=== PATIENT | female | born 2005 ===

== ENCOUNTER 2023-04-25 08:56 | Outpatient (AMB) | payer OTHER, SELFPAY ==
--- NOTE | 2023-04-25 09:35 | AM.OFFWIN_ITS ---
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 ([phone]) Intake Note: pt is here today for sore throat started 2 weeks ago Allergies No Known Allergies Allergy (Verified 04/25/23 09:36) Do you need a note to return to daycare/school/sports/work: Yes HPI HPI Comments History of Present Illness Details She presents with ST 2 weeks ago + tonsillar swelling with fe jade but was given amoxicillin and it resolved She stopped antibiotics early; took about 4-5 days worth She said tonsils were still swollen but white spots were gone Symptoms started again a few day ago She said no fever or chills Pain level very bad Hard to swollow Review of Systems Const Denies body aches, Denies chills, Denies fatigue and Denies fever(s) Eyes Denies blurry vision ENT Denies otalgia, Denies nasal discharge, Denies sinus pressure, Reports sore throat, Reports throat swelling (tonsils) and Denies tongue swelling Card Denies chest pain and Denies dyspnea Resp Denies cough and Denies dyspnea Endo Denies fatigue Aller/Immun Reports throat swelling (tonsils) and Denies tongue swelling Physical Exam Vital Signs: General: Non-toxic, NAD. Speaking full sentences. Skin: Warm dry throughout Eye: EOMI HENT: Airway patent. Uvula midline. + pharyngeal erythema with tonsillar exudates and edema. Tonsils not touching. No tongue edema. No CRYSTALIZER OPERATOR. Bilateral canals clear. TM non-erythematous, non-bulging. No TM perforation or hemotympanum noted. Lymph: + lymphadenopathy Respiratory: No respiratoyr distress or tachypnea Cardiac: RRR. No murmur MSK: Full ROM extremities. Neurology: A/O. No aphasia or facial droop. Gait without abnormality Psych: Good mood and affect Assessment & Plan Assessment & Plan (1) Strep pharyngitis: Code(s): J02.0 - Streptococcal pharyngitis Plan: Patient seen and evaluated. Airway is patent and there is no CRYSTALIZER OPERATOR Strep appeared negative but based off of [facility] criteria + strep She does not have mono like symptoms of fatigue/malaise/body aches Amoxicillin for FULL DOSE. We discussed importance of this. Prednisone with food;avoid nsaids and alcohol ANy inability to swallow, tightness, worsening symptoms go to Ed Patient gave verbal understanding and had no additional questions or concerns at time of discharge All questions answered Medications: New amoxicillin 500 mg PO Q12H 20 tabs 0RF J02.0 - Streptococcal pharyngitis prednisone 40 mg (2 x 20 mg) PO DAILY 4 days 8 tabs 0RF J02.0 - Streptococcal pharyngitis Coding Level of Care Code New Pt Level 3 (93851) Diagnoses Strep pharyngitis J02.0
[2023-04-25 09:45] VITALS: BP 118/80; PULSE 98; O2SAT 98; BMI 33.8
== END 2023-04-25 10:03 | disposition home or self-care (01) ==
PROVIDERS: Visit Provider Physician Assistant
DX: Z13.9 Encounter for screening, unspecified (principal); J02.0 Streptococcal pharyngitis
CPT/HCPCS: 87880; 99203

== ENCOUNTER 2023-05-16 08:38 | Outpatient (AMB) | payer OTHER, SELFPAY ==
--- NOTE | 2023-05-16 08:41 | AM.OFFWIN_ITS ---
Intake Vital Signs 05/16/23 08:45 Height 5 ft 3 in Weight 194 lb BMI 34.4 BP 116/78 Blood Pressure Location Lt brachial Position Sitting Pulse 87 Pulse Source Pulse Oximeter Temp 97.6 F Temp Source Temporal Artery Scan Pulse Oximetry (%) 99 Oxygen Delivery Method Room Air Intake Visit Reasons: EP swollen tonsils [id number] Intake Note: pt is here today for swollen tonsils started 1 week ago Patient Tobacco Use Status: Never used Tobacco Is last menstrual period known: Yes Allergies No Known Allergies Allergy (Verified 04/25/23 09:36) Do you need a note to return to daycare/school/sports/work: No HPI HPI Comments History of Present Illness Details This is a 17-year-old female who presented to the walk-in clinic complaining of tonsillar swelling. Patient states she was treated for strep pharyngitis at the beginning of March; however, she did not complete the antibiotic course of amoxicillin. She was then evaluated here on 04/25/2023 for persistent symptoms. Her rapid strep testing was negative; however, the patient was diagnosed with strep pharyngitis based on [facility] criteria and she was given a 10 day course of amoxicillin as well as a 4 day course of prednisone. Patient states she completed both of these medications and her symptoms resolved but then returned again approximately 1 week ago. She reports sore throat, dysphagia, and tonsillar swelling. She denies any difficulty breathing or difficulty swallowing. She denies any cough. Patient is also requesting a test. She states she has been spotting and cramping. She took a test at home, which was positive; however, she then took 5 more test, which were negative. [facility] Social History Patient Tobacco Use Status: Never used Tobacco Review of Systems Const All systems reviewed & are unremarkable except as noted in HPI and below Reports no additional complaints Eyes Reports no additional complaints ENT Reports no additional complaints Card Reports no additional complaints Resp Reports no additional complaints GI Reports no additional complaints Reports no additional complaints Musc Reports no additional complaints Skin/Breast Reports system reviewed and no additional complaints, except as documented Neuro Reports no additional complaints Psych Reports no additional complaints Endo Reports no additional complaints Jono/Lymph Reports no additional complaints Aller/Immun Reports no additional complaints Physical Exam Vital Signs: Last Vital Signs Temp 97.6 F 05/16/23 08:45 Pulse 87 01/19/24 08:45 BP 116/78 05/16/23 08:45 Pulse Ox 99 05/16/23 08:45 Oxygen Delivery Method Room Air 05/16/23 08:45 BMI result Body Mass Index 34.4 Const Other: Vital signs reviewed. Constitutional: Non-toxic appearing. No acute distress. Well-developed and well-nourished. HEENT: Normocephalic and atraumatic. Bilateral tonsillar swelling and erythema. There are scant white patchy exudates. Airway patent. Skin: Warm and dry. No rashes or lesions noted. Neck: Full and painless range of motion. No cervical lymphadenopathy. Cardio: Regular rate No lower extremity edema. No JVD. Pulmonary: No respiratory distress. No accessory muscle usage. No stridor. Musculoskeletal: Normal range of motion in joints throughout the body. No deformity or other signs of injury. Neuro: Alert and oriented x4. Cranial nerves 2-12 grossly intact. No focal deficits appreciated. Psych: Normal mood and affect. Results AMB Rapid Strep AMB Rapid Strep Negative Last Edit by Sher Alvarez CMA on 05/16/23 09 :08 AMB Test Urine AMB Test Urine Negative Last Edit by Sher Alvarez CMA on 05/16/23 09:19 Results Reviewed Results Reviewed: Laboratory Last Values Strep Scn Rapid Clinic Negative 05/16/23 09:08 Assessment & Plan Assessment & Plan (1) Strep pharyngitis: Code(s): J02.0 - Streptococcal pharyngitis (2) Acute tonsillitis: Code(s): J03.90 - Acute tonsillitis, unspecified Qualifiers: Pharyngitis/tonsillitis etiology: streptococcus Streptococcal tonsillitis recurrence: recurrent Qualified Code(s): J03.01 - Acute recurrent streptococcal tonsillitis Plan This is a 17-year-old female who presented to the office complaining of recurrent tonsillar swelling following treatment with amoxicillin and prednisone for streptococcal pharyngitis/tonsillitis. On physical examination, the patient has bilateral tonsillar erythema, edema, and patchy exudates. The patient's airway is patent she has no stridor, muffled voice, or tripoding. No evidence of peritonsillar mass/abscess, peritonsillar cellulitis, or, unilateral neck swelling. Her vital signs are stable, her physical exam is otherwise benign, and she is overall nontoxic appearing. Her history and physical most consistent with recurrent streptococcal pharyngitis/tonsillitis. Patient was given a prescription for p.o. amoxicillin/clavulanate 875/125 mg twice daily times 10 days given recurrence of symptoms as well as p.o. prednisone 40 mg daily x5 days. A throat culture was sent for further evaluation. Recommended symptomatic management including rest, increased fluids, advil/tylenol for pain/fever, salt water gargles, and over the counter throat lozenges. Patient advised to follow up here or go to the emergency room for worsening/persistent symptoms including difficulty breathing, difficulty swallowing, wheezing/stridor. Patient verbalizes understanding and is in agreement the plan. Additionally, the patient had requested a test. She had a POCT urine hCG, which was negative. Patient was made aware of the results in the office. She was encouraged to establish care with a primary care physician for possible ENT referral as well as OBGYN referral for spotting/cramping. Patient verbalizes her understanding is she is in agreement with the plan. Orders: Orders Throat Culture Today J02.0 - Streptococcal pharyngitis AMB Rapid Strep Screen Today Z13.9 - Encounter for screening, unspecified AMB HCG Urine Test Today Z13.9 - Encounter for screening, unspecified Medications: New amoxicillin-pot clavulanate 875-125 mg 1 tab PO BID 20 tabs 0RF prednisone 40 mg (2 x 20 mg) PO DAILY 10 tabs 0RF Saccharomyces boulardii (Probiotic (S.boulardii)) 250 mg PO BID 20 caps 0RF Coding Level of Care Code Est Pt Level 3 (96240) Diagnoses Strep pharyngitis J02.0 Acute recurrent streptococcal tonsillitis J03.01 Pharyngitis/tonsillitis etiology: streptococcus Streptococcal tonsillitis recurrence: recurrent
[2023-05-16 08:45] VITALS: BP 116/78; PULSE 87; TEMP 36.4; O2SAT 99; BMI 34.4
== END 2023-05-16 09:24 | disposition home or self-care (01) ==
PROVIDERS: Visit Provider Physician Assistant Medical
DX: J03.01 Acute recurrent streptococcal tonsillitis (principal); Z32.02 Encounter for pregnancy test, result negative
CPT/HCPCS: 81025; 87880; 99213

== ENCOUNTER 2023-05-16 09:10 | Outpatient (REF) | payer OTHER, SELFPAY | END 2023-05-16 09:11 | disposition home or self-care (01) | LOC: HO.LAB 09:10 | PROVIDERS: Visit Provider Physician Assistant Medical | DX: J02.0 Streptococcal pharyngitis (principal) | CPT/HCPCS: 87070 ==

== ENCOUNTER 2023-05-23 10:26 | Outpatient (AMB) | payer OTHER, SELFPAY ==
[2023-05-23 10:24] VITALS: BP 100/60; PULSE 93; TEMP 36.8; O2SAT 99; BMI 33.7
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
== END 2023-05-23 11:54 | disposition home or self-care (01) ==
PROVIDERS: Visit Provider Physician Assistant Medical
DX: M62.838 Other muscle spasm (principal); S23.9XXA Sprain of unspecified parts of thorax, initial encounter; M25.512 Pain in left shoulder
CPT/HCPCS: 99213

== ENCOUNTER 2023-05-23 10:46 | Outpatient (REF) | payer OTHER, SELFPAY ==
--- NOTE | ~2023-05-23 | XR_ITS ---
EXAMINATION: XR SHOULDER, LEFT CLINICAL INFORMATION: Pain COMPARISON: None available. TECHNIQUE: AP external rotation, Grashey, scapular Y, and axillary views of the left shoulder. FINDINGS: The bones and soft tissues are normal. No fracture. Glenohumeral and acromioclavicular alignment is anatomic with normal joint space. No abnormal soft tissue calcifications. XR/XR shoulder LT min 2V IMPRESSION: Normal left shoulder.
== END 2023-05-23 10:47 | disposition home or self-care (01) ==
LOC: HO.HMGCX 10:46
PROVIDERS: Visit Provider Physician Assistant Medical
DX: M25.512 Pain in left shoulder (principal)
CPT/HCPCS: 73030

== ENCOUNTER 2023-06-03 08:58 | Outpatient (AMB) | payer OTHER, SELFPAY ==
[2023-06-03 10:09] VITALS: BP 112/80; PULSE 98; TEMP 36.3; O2SAT 99; BMI 32.6
--- NOTE | 2023-06-03 10:09 | AM.OFFWIN_ITS ---
Intake Vital Signs 06/03/23 10:09 Height 5 ft 3 in Weight 184 lb BMI 32.6 BP 112/80 Blood Pressure Location Lt brachial Position Sitting Pulse 98 Pulse Source Pulse Oximeter Temp 97.3 F Temp Source Temporal Artery Scan Pulse Oximetry (%) 99 Oxygen Delivery Method Room Air Intake Visit Reasons: EP cough asthma fever chest hurts [id number] Intake Note: pt is here today for cough asthma fever chest hurts started 2 days ago Patient Tobacco Use Status: Never used Tobacco Allergies No Known Allergies Allergy (Verified 06/03/23 10:46) Medication List - Last Reconciled 06/03/23 by Richmond Jarrell, FIRE EXTINGUISHER REPAIRER benzonatate 100 mg PO BID-TID PRN prednisone 20 mg PO BID Do you need a note to return to daycare/school/sports/work: Yes HPI HPI Comments History of Present Illness Details Patient is a 17-year-old female in today for a sick visit. She has a past medical history significant for asthma. She states that for the past couple of days she has developed symptoms of cough, sore throat, headache, chest congestion. 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 Will obtain an URI swab in office today. Patient states she has not had to use her albuterol inhaler. Denies chest pain, shortness a breath, dyspnea on exertion, numbness, dizziness, nausea, vomiting, diarrhea. PFSH Social History Patient Tobacco Use Status: Never used Tobacco Review of Systems Const Details: Constitutional : No Weight loss, No Fever, No Chills, Admits some Fatigue, No Malaise ENT/Mouth : Admits sore throat, No Rhinorrhea, Admits ear fullness. Eyes: No Eye Pain, No Swelling, No Redness Cardiovascular : No Chest Pain, No SOB, No Dyspnea on Exertion, No Orthopnea, No Edema, No Palpitations Respiratory : Admits Cough, No Sputum, No Wheezing Gastrointestinal : No Nausea, No Vomiting, No Diarrhea, No Constipation, No abdominal Pain, No Hematochezia, No Melena Genitourinary : No Dysuria, No Urinary Frequency, No Hematuria, Musculoskeletal : No joint pain, No Myalgias, No Joint Swelling Skin : No Skin Lesions, No rash Neuro : No Weakness, No Numbness, No Dizziness, No Headache Psych : No Anxiety/Panic, No Depression Heme/Lymph: No Bruising, No Bleeding,No Lymphadenopathy Endocrine : No Polyuria, No Polydipsia All other systems reviewed and are negative Physical Exam Vital Signs: Last Vital Signs Temp 97.3 F 06/03/23 10:09 Pulse 98 06/03/23 10:09 BP 112/80 06/03/23 10:09 Pulse Ox 99 06/03/23 10:09 Oxygen Delivery Method Room Air 06/03/23 10:09 BMI result Body Mass Index 32.6 Const Other: Appearance: Alert.? Oriented X3.? No acute distress.? Head: Normocephalic, atraumatic, Eyes: Pupils equal, round and reactive to light.? ENT: Pharynx erythema. Tonsils +2. Turbinate edema. TM intact with effusion bilaterally. Neck: Normal inspection.? Neck supple.?Full ROM. CVS: Normal heart rate and rhythm.? Pulses normal.? Respiratory: No respiratory distress.? Breath sounds normal.? Abdomen: Soft and nontender.? Neuro: Oriented X 3.? No motor deficit.? No sensory deficit. CN 2-12 intact Results Reviewed Results Reviewed: Will call patient with swab results. Assessment & Plan Assessment & Plan (1) Upper respiratory infection: Comment: Patient had URI swab. Will give benzonatate and prednisone to be taken as directed. Patient has been educated on signs of worsening symptoms and when to return to the walk-in or when to present to the ED. patient states she understands Code(s): J06.9 - Acute upper respiratory infection, unspecified Qualifiers: URI type: unspecified URI Qualified Code(s): J06.9 - Acute upper respiratory infection, unspecified Plan: Take your medications as prescribed. If you were prescribed antibiotics today, it is important that you take your medication to their entirety, do not skip any doses, do not finish them early. Follow-up with your primary care provider this week. Return to the emergency department with new or worsening symptoms. Such as fevers, chills, chest pain, shortness of breath, nausea, vomiting, dizziness, headache, vision changes, lethargy In case of emergency call 911 Plan Follow-up with PCP. Orders: Orders SARS-CoV2/FLU/RSV Today J06.9 - Acute upper respiratory infection, unspecified Medications: New benzonatate 100 mg PO BID-TID PRN 30 caps 0RF cough prednisone 20 mg PO BID 10 tabs 0RF Coding Level of Care Code Est Pt Level 3 (40418) Diagnoses Upper respiratory tract infection, unspecified type J06.9 URI type: unspecified URI Time Spent (min) 25
== END 2023-06-03 11:09 | disposition home or self-care (01) ==
PROVIDERS: Visit Provider Nurse Practitioner Primary Care
DX: J06.9 Acute upper respiratory infection, unspecified (principal)
CPT/HCPCS: 99213

== ENCOUNTER 2023-06-03 13:31 | Outpatient (REF) | payer OTHER, SELFPAY ==
[2023-06-03 15:03] LABS: Influenza A PCR POSITIVE (Negative); Influenza B PCR NEGATIVE (Negative); Resp Syncy Virus RNA Qual PCR NEGATIVE (Negative); SARS COV2 PCR INHOUSE NEGATIVE (Negative)
== END 2023-06-03 13:32 | disposition home or self-care (01) ==
LOC: HO.LNP 13:31
PROVIDERS: Visit Provider Nurse Practitioner Primary Care
DX: Z11.52 Encounter for screening for COVID-19 (principal); J06.9 Acute upper respiratory infection, unspecified
CPT/HCPCS: 0241U

== ENCOUNTER 2023-06-19 10:20 | Outpatient (AMB) | payer OTHER, SELFPAY ==
[2023-06-19 11:13] VITALS: BP 114/70; PULSE 98; TEMP 36.9; O2SAT 99; BMI 32.8
--- NOTE | 2023-06-19 11:13 | AM.OFFWIN_ITS ---
Intake Vital Signs 06/19/23 11:13 Height 5 ft 3 in Weight 185 lb BMI 32.8 BP 114/70 Blood Pressure Location Lt brachial Position Sitting Pulse 98 Pulse Source Pulse Oximeter Temp 98.5 F Temp Source Temporal Artery Scan Pulse Oximetry (%) 99 Intake Visit Reasons: EP fever, Ear pain/[place] eye [phone] Intake Note: pt is here today for fever ear pain pink eye started yesterday Patient Tobacco Use Status: Never used Tobacco Allergies No Known Allergies Allergy (Verified 06/19/23 11:14) Do you need a note to return to daycare/school/sports/work: Yes HPI HPI Comments History of Present Illness Details 17 y/o female who presents to walk in [facility] with c/o bilateral pink eyes and left ear pain that started Friday. She has not taken any OTC medications. Reports subjective fevers at home. No recent sick contact. PFSH Social History Patient Tobacco Use Status: Never used Tobacco Review of Systems Const All systems reviewed & are unremarkable except as noted in HPI and below Physical Exam Vital Signs: Last Vital Signs Temp 98.5 F 06/19/23 11:13 Pulse 98 06/19/23 11:13 BP 114/70 06/19/23 11:13 Pulse Ox 99 06/19/23 11:13 BMI result Body Mass Index 32.8 Const General: no acute distress and ill appearing HEENT Head: Yes normocephalic and Yes atraumatic Ears: external ears normal, TM normal on the right and TM abnormal (Left ear) bulging, wth effusion, erythematous, with fluid behind the TM and retracted General nose exam: Normal external nose present and Abnormal mucous membranes and turbinates present boggy and erythematous Face and sinus: Yes sinuses nontender Mouth: Abnormal oral and palatal mucosa present (+ 2 tonsils swollen ) erythematous Throat: Yes posterior oropharynx normal Eyes Other: Bilateral eyes, redness with yellow crusty coating/ drainage Eyelids: Yes eyelids normal Pupils: Equal, round and reactive pupils present EOM: EOMs intact bilaterally Direct Ophthalmoscopy: normal light reflex Resp Effort & Inspection: normal respiratory effort and able to speak in complete sentences Auscultation: clear to auscultation bilaterally Cardio Rate: regular rate Rhythm: regular rhythm Neuro Cranial nerves: Yes Equal, round and reactive pupils present Assessment & Plan Assessment & Plan (1) Bacterial conjunctivitis of both eyes: Code(s): H10.9 - Unspecified conjunctivitis; B96.89 - Other specified bacterial agents as the cause of diseases classified elsewhere Plan: - Keep eyes clean, wash with warm water - Abx as prescribed (2) Otitis media: Code(s): H66.90 - Otitis media, unspecified, unspecified ear Qualifiers: Chronicity: acute Laterality: left Otitis media type: suppurative Recurrence: not specified as recurrent Spontaneous tympanic membrane rupture: without spontaneous rupture Qualified Code(s): H66.002 - Acute suppurative otitis media without spontaneous rupture of ear drum, left ear Plan: - abx as prescribed - Acetaminophen for pain Orders: Orders SARS-CoV2/FLU/RSV Today B96.89 - Other specified bacterial agents as the cause of diseases classified elsewhere, H10.9 - Unspecified conjunctivitis, H66.002 - Acute suppurative otitis media without spontaneous rupture of ear drum, left ear Medications: New amoxicillin-pot clavulanate 875-125 mg 1 tab PO BID 10 days 20 tabs 0RF H66.002 - Acute suppurative otitis media without spontaneous rupture of ear drum, left ear acetaminophen 1,000 mg (2 x 500 mg) PO Q6H PRN 30 caps 0RF fever H66.002 - Acute suppurative otitis media without spontaneous rupture of ear drum, left ear erythromycin 1 appl ophthalmic (eye) BEDTIME 7 days 3.5 grams 0RF B96.89 - Other specified bacterial agents as the cause of diseases classified elsewhere, H10.9 - Unspecified conjunctivitis Coding Level of Care Code Est Pt Level 3 (67178) Diagnoses Bacterial conjunctivitis of both eyes H10.9; B96.89 Acute suppurative otitis media of left ear without spontaneous rupture of tympanic membrane, recurrence not specified H66.002 Chronicity: acute Laterality: left Otitis media type: suppurative Recurrence: not specified as recurrent Spontaneous tympanic membrane rupture: without spontaneous rupture Time Spent (min) 15
== END 2023-06-19 12:07 | disposition home or self-care (01) ==
PROVIDERS: Visit Provider Nurse Practitioner Family
DX: H10.9 Unspecified conjunctivitis (principal); B96.89 Other specified bacterial agents as the cause of diseases classified elsewhere; H66.002 Acute suppurative otitis media without spontaneous rupture of ear drum, left ear
CPT/HCPCS: 99213

== ENCOUNTER 2023-06-19 11:54 | Outpatient (REF) | payer OTHER, SELFPAY ==
[2023-06-19 14:21] LABS: Influenza A PCR NEGATIVE (Negative); Influenza B PCR NEGATIVE (Negative); Resp Syncy Virus RNA Qual PCR NEGATIVE (Negative); SARS COV2 PCR INHOUSE NEGATIVE (Negative)
== END 2023-06-19 11:55 | disposition home or self-care (01) ==
LOC: HO.LAB 11:54
PROVIDERS: Visit Provider Nurse Practitioner Family
DX: Z11.52 Encounter for screening for COVID-19 (principal); Z20.822 Contact with and (suspected) exposure to COVID-19; B96.89 Other specified bacterial agents as the cause of diseases classified elsewhere; H10.9 Unspecified conjunctivitis; H66.002 Acute suppurative otitis media without spontaneous rupture of ear drum, left ear
CPT/HCPCS: 0241U

== ENCOUNTER 2023-06-26 11:57 | Outpatient (AMB) | payer OTHER, SELFPAY ==
--- NOTE | 2023-06-26 13:07 | MHC.OFFWIV ---
Intake Vital Signs 06/26/23 13:13 Weight 185 lb 6 oz BP 108/76 Blood Pressure Location Lt brachial Position Sitting Pulse 66 Pulse Source Pulse Oximeter Temp 97.4 F Temp Source Oral Pulse Oximetry (%) 100 Oxygen Delivery Method Room Air Intake Visit Reasons: EP ?Ear infection/Fever [phone] Intake Note: Patient here for left ear infection and fevers that have not cleared since being on antibiotics. Patient Tobacco Use Status: Never used Tobacco Allergies No Known Allergies Allergy (Verified 06/26/23 13:08) Do you need a note to return to daycare/school/sports/work: No HPI EP ?Ear infection/Fever [phone] HPI Details This is a 17-year-old female patient who presents today with ongoing bilateral ear and throat pain. She states that she has been constantly sick over the last couple of months with strep, then flu, then an ear infection. She was seen here on 06/19 and started on Augmentin for right OA. She states she is on day 8 of 10 and her ear pain/pressure has not improved at all, and now she has right ear pain as well. States he hearing is poor and she has a ringing sensation in b/l ears. Denies fevers. [facility] Social History Patient Tobacco Use Status: Never used Tobacco Review of Systems Const All systems reviewed & are unremarkable except as noted in HPI and below Physical Exam Vital Signs: Last Vital Signs Temp 97.4 F 06/26/23 13:13 Pulse 66 06/26/23 13:13 BP 108/76 06/26/23 13:13 Pulse Ox 100 06/26/23 13:13 Oxygen Delivery Method Room Air 06/26/23 13:13 Const General: cooperative and ill appearing acutely HEENT Head: Yes normal to inspection Ears: external ears normal and TM abnormal (bilateral erythema, purulent effusion) General nose exam: Normal external nose present Face and sinus: Yes normal facial exam Mouth: Normal oral and palatal mucosa present Throat: Yes posterior oropharynx abnormal (Erythema, tonsillar hypertrophy and exudate) Neck Neck: Yes no lymphadenopathy Resp Effort & Inspection: normal respiratory effort Auscultation: clear to auscultation bilaterally Cardio Palpation: normal PMI Rate: regular rate Rhythm: regular rhythm Skin General skin exam: no rashes or lesions noted Extrem General: Yes capillary refill normal and Yes no clubbing, cyanosis or edema Psych Appearance: grossly normal Mental Status: mental status grossly normal Speech and movement: Normal speech and movement present Results AMB Rapid Strep AMB Rapid Strep Negative Last Edit by Sher Alvarez CMA on 06/26/23 13:43 Assessment & Plan Assessment & Plan (1) Bilateral otitis media with effusion: Code(s): H65.93 - Unspecified nonsuppurative otitis media, bilateral Plan: Will start on doxy times 10 days for unresolving bilateral otitis media. Will also prescribe fluconazole prn if she develops yeast infection. Reviewed indications, use, possible side effects of these medications. I have placed an ENT referral as patient does not have a PCP at this time due to recurrent an unresolving ear and throat infections. Encouraged ongoing conservative measures with increased hydration, Tylenol/Motrin as needed. Will follow up with us as needed if she does not improve with time/treatment. She verbalizes understanding and agrees to plan. Orders: Orders AMB Rapid Strep Screen Today Z13.9 - Encounter for screening, unspecified Referrals Ear/Nose/Throat Referral H65.93 - Unspecified nonsuppurative otitis media, bilateral Medications: New doxycycline hyclate 100 mg PO BID 10 days 20 caps 0RF H65.93 - Unspecified nonsuppurative otitis media, bilateral fluconazole may repeat second dose 72 hrs after first dose if symptoms persist. Take if needed if yeast infection develops following antibiotic use 150 mg PO Q3D 2 tabs 0RF H65.93 - Unspecified nonsuppurative otitis media, bilateral Coding Level of Care Code Est Pt Level 3 (75052) Diagnoses Bilateral otitis media with effusion H65.93
[2023-06-26 13:13] VITALS: BP 108/76; PULSE 66; TEMP 36.3; O2SAT 100
== END 2023-06-26 14:10 | disposition home or self-care (01) ==
PROVIDERS: Visit Provider Nurse Practitioner Family
DX: H65.93 Unspecified nonsuppurative otitis media, bilateral (principal); J02.9 Acute pharyngitis, unspecified
CPT/HCPCS: 87880; 99213

== ENCOUNTER 2024-02-12 08:37 | Outpatient (AMB) | payer OTHER, SELFPAY ==
[2024-02-12 08:41] VITALS: BP 110/76; PULSE 74; TEMP 36.5; O2SAT 98; BMI 35.1
--- NOTE | 2024-02-12 08:41 | AM.OFFWIN_ITS ---
Intake Vital Signs 02/12/24 08:41 Height 5 ft 3 in Weight 198 lb BMI 35.1 BP 110/76 Blood Pressure Location Rt brachial Position Sitting Pulse 74 Pulse Source Pulse Oximeter Temp 97.7 F Temp Source Oral Pulse Oximetry (%) 98 Oxygen Delivery Method Room Air Intake Visit Reasons: EP-nose congestion, fever Intake Note: Patient here for congestion, headaches, fevers at night which has been going on for about 1 week. Patient Tobacco Use Status: Never used Tobacco Allergies No Known Allergies Allergy (Verified 02/12/24 08:42) Do you need a note to return to daycare/school/sports/work: Yes HPI EP-nose congestion, fever HPI Details This note is constructed using voice recognition software. While every effort has been made to ensure accuracy, preservative filler machine operator errors may have been included. The patient is a 18 year old female who presents to the clinic today with sinus congestion, fever for the past week and a half. She notes that she has tried several [id number] decongestants to help improve her symptoms, however they have not helped. She reports congestion primarily delivery sinuses, left more than right, and with pressure that feels like it is going down into her teeth. [facility] Social History Patient Tobacco Use Status: Never used Tobacco Review of Systems Const All systems reviewed & are unremarkable except as noted in HPI and below Physical Exam Vital Signs: Last Vital Signs Temp 97.7 F 02/12/24 08:41 Pulse 74 02/12/24 08:41 BP 110/76 02/12/24 08:41 Pulse Ox 98 02/12/24 08:41 Oxygen Delivery Method Room Air 02/12/24 08:41 BMI result Body Mass Index 35.1 Const General: cooperative, healthy appearing, comfortable and no acute distress Orientation/consciousness: patient oriented x3 Limitations: no limitations HEENT Head: Yes normal to inspection Ears: hearing grossly normal bilaterally, external ears normal and TM's normal bilaterally General nose exam: Normal external nose present, Normal nares present, Abnormal mucous membranes and turbinates present erythematous and Nasal discharge present purulent Face and sinus: Yes normal facial exam and Yes sinus tenderness Mouth: Normal oral and palatal mucosa present and moist mucous membranes Throat: Yes posterior oropharynx normal, Yes tonsils normal and Yes uvula midline Eyes General: appearance normal, both eyes and all related structures Neck Neck: Yes normal visual inspection Resp Effort & Inspection: normal respiratory effort, able to speak in complete sentences, Actively coughing, no respiratory distress, not tachypneic, no tripod positioning and no use of accessory muscles Auscultation: clear to auscultation bilaterally Cardio Rate: regular rate Rhythm: regular rhythm Heart sounds: normal S1 and S2 Skin General skin exam: no rashes or lesions noted Neuro General: patient oriented x3 Extrem General: Yes normal to inspection and Yes no clubbing, cyanosis or edema Assessment & Plan Assessment & Plan (1) Sinusitis: Code(s): J32.9 - Chronic sinusitis, unspecified Qualifiers: Sinusitis location: maxillary Chronicity: acute Recurrence: non- recurrent Qualified Code(s): J01.00 - Acute maxillary sinusitis, unspecified Plan: Supportive measures encouraged and reviewed. Advised consideration of sinus rinse if needed. Antibiotic sent to requested pharmacy, advised patient to take antibiotics until completed and not to stop if feeling better, unless the patient has side effects. Advised patient to follow up with primary care provider with worsening or failure to resolve. Viral swab obtained to rule out Covid based on symptoms. Advised mask wearing while symptomatic and quarantine per current CDC guidelines. Reviewed at home support methods including hydration, humidification, vix vapor rub, sinus rinse. Advised follow up with worsening symptoms such as dyspnea at rest, which would require emergent evaluation. Plan See above for full details and plan. Orders: Orders SARS-CoV2/FLU/RSV Today J06.9 - Acute upper respiratory infection, unspecified Medications: New amoxicillin-pot clavulanate 875-125 mg 1 tab PO BID 10 days 20 tabs 0RF Coding Level of Care Code Est Pt Level 3 (12709) Diagnoses Acute non-recurrent maxillary sinusitis J01.00 Sinusitis location: maxillary Chronicity: acute Recurrence: non-recurrent
== END 2024-02-12 09:07 | disposition home or self-care (01) ==
PROVIDERS: Visit Provider Registered Nurse
DX: J01.00 Acute maxillary sinusitis, unspecified (principal)